=== PATIENT | female | born 1965 | race African-American/Black ===

== ENCOUNTER → 2016-12-09 | Outpatient (CLI) | payer OTHER ==
--- NOTE | 2016-12-09 13:12 | RAD ---
DATE: 12/09/2016 EXAM: DIGITAL SCREEN BILAT W/CAD HISTORY: 51-year-old female presents for screening mammography COMPARISON: 06/14/2015 and 05/25/2015 TECHNIQUE: Full field digital craniocaudal mediolateral oblique views of both breasts are obtained: This study was interpreted with the benefit of Computerized Aided Detection (CAD). FINDINGS: The breast parenchyma shows scattered fibroglandular densities. Level B. There is no suspicious mass, calcification or architectural distortion within either breast. IMPRESSION: Benign findings. BI-RADS CATEGORY: 2 BENIGN FINDING RECOMMENDED FOLLOW-UP: 12M 12 MONTH FOLLOW-UP PQRS compliance statement: Patient information was entered into a reminder system with a target due date in one year for the next mammogram. Mammography is a sensitive method for finding small breast cancers, but it does not detect them all and is not a substitute for careful clinical examination. A negative mammogram does not negate a clinically suspicious finding and should not result in delay in biopsying a clinically suspicious abnormality. "Our facility is accredited by the [employer] Mammography [employer]."
== END | disposition home or self-care (01) ==
LOC: MAMMO 11:23
PROVIDERS: ATTEND Nurse Practitioner
DX: Z12.31 Encounter for screening mammogram for malignant neoplasm of breast (principal)
CPT/HCPCS: G0202; 77067

== ENCOUNTER → 2017-07-27 | Outpatient (CLI) | payer OTHER ==
--- NOTE | 2017-07-27 10:38 | RAD ---
DATE: 07/27/2017 EXAM: DIGITAL DIAGNOSTIC LT, BREAST LEFT HISTORY: Breast nodule COMPARISON: 12/09/2016 This study was interpreted with the benefit of Computerized Aided Detection (CAD). The breast parenchyma shows scattered fibroglandular densities. Breast parenchyma level B. FINDINGS: A BB was placed over the area of clinical concern in the lateral periventricular region. 2-D mammograms are obtained in CC and MLO projections. 3-D tomosynthesis imaging was then performed in the CC projection. The fibroglandular pattern is unchanged. No mass or suspicious microcalcifications are evident. Left breast ultrasound, 07/27/2017: A targeted ultrasound exam was performed in the area of clinical concern at the 3:00 periareolar region. No cystic or solid mass is seen. IMPRESSION: 1. Stable left mammograms without evidence of malignancy. 2. There is no mammographic or sonographic correlate for the area of reported clinical concern. This may be a skin related process which should be dealt with on clinical grounds. Clinical surveillance is suggested. BI-RADS CATEGORY: 1 NEGATIVE RECOMMENDED FOLLOW-UP: 12M 12 MONTH FOLLOW-UP PQRS compliance statement: Patient information was entered into a reminder system with a target due date for the next mammogram. Mammography is a sensitive method for finding small breast cancers, but it does not detect them all and is not a substitute for careful clinical examination. A negative mammogram does not negate a clinically suspicious finding and should not result in delay in biopsying a clinically suspicious abnormality. "Our facility is accredited by the [employer] Mammography [employer]."
== END | disposition home or self-care (01) ==
LOC: MAMMO 08:02
DX: R92.8 Other abnormal and inconclusive findings on diagnostic imaging of breast (principal)
CPT/HCPCS: 76641; 77065

== ENCOUNTER → 2020-08-01 | Emergency (ER) | payer OTHER ==
[~2020-08-01] VITALS: Ht 167.6 cm; Wt 73.6 kg
[~2020-08-01] MED LIST: HYDR-2155 PO; diazePAM 5 MG TABLET. PO ONE; oxyCODONE/APAP 5/325 1 TAB TABLET PO ONE
[2020-08-01 19:48] VITALS: BP 131/89
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
== END | disposition home or self-care (01) ==
LOC: ER 19:29
DX: M25.511 Pain in right shoulder (principal); M25.512 Pain in left shoulder; M54.2 Cervicalgia; M62.838 Other muscle spasm; M19.90 Unspecified osteoarthritis, unspecified site; V43.52XA Car driver injured in collision with other type car in traffic accident, initial encounter; Y93.I9 Activity, other involving external motion; Y92.89 Other specified places as the place of occurrence of the external cause; Y99.8 Other external cause status
CPT/HCPCS: 99283

== ENCOUNTER → 2021-06-28 | Outpatient (CLI) | payer OTHER ==
[2020-08-01 19:48] VITALS: BP 131/89
[~2021-06-28] MED LIST changes: -diazePAM 5 MG TABLET. PO ONE; -oxyCODONE/APAP 5/325 1 TAB TABLET PO ONE
--- NOTE | 2021-06-28 14:59 | RAD ---
INDICATION: 56 years of age asymptomatic female patient presents for screening mammography. No person al or family history of breast cancer. TECHNIQUE: Full field craniocaudal and mediolateral oblique images of both breasts were obtained usi ng digital technique with tomosynthesis and also analyzed with computer-aided detection software. COMPARISON: Prior mammographic imaging dating back to 05/25/2015. BREAST COMPOSITION: Category B: There are scattered fibroglandular densities. FINDINGS: No suspicious masses, microcalcifications or architectural distortion is present to suggest malignanc y in either breast. The visualized axillae are unremarkable. IMPRESSION: No mammographic evidence of malignancy. RECOMMENDATION: Annual screening mammography is recommended, unless clinically indicated sooner based on symptoms or change in physical exam. BIRADS 1: NEGATIVE This study was interpreted with the benefit of Computerized Aided Detection (CAD). Patient information is entered into the reminder system with a target due date for the next screening mammogram. Mammography is the most sensitive method for finding small breast cancers, but it does not detect the m all and is not a substitute for careful clinical examination. A negative mammogram does not negate a clinically suspicious finding and should not result in delay in biopsying a clinically suspicious a bnormality. "Our facility is accredited by the [employer] Mammography [employer]." Electronically signed by: Foreign Ghotra DO (06/28/2021 2:57 PM) [id number]
== END ==
LOC: MAMMO 08:08
PROVIDERS: ATTEND Family Medicine
DX: Z12.31 Encounter for screening mammogram for malignant neoplasm of breast (principal)
CPT/HCPCS: 77063; 77067